=== PATIENT | male | born 1950 | race Caucasian/White ===

== ENCOUNTER → 2016-11-26 | Outpatient (CLI) | payer MEDICARE, OTHER ==
[2016-11-26 08:34] LABS: HEMOGLOBIN 16.1 g/dL (14.1-18.0); LYMPH # 1.5 K/mm3 (0.7-4.5); LYMPH % 19.6 % (10-50)
[2016-11-26 09:33] LABS: BUN 16 mg/dL (7-18)
[2016-11-26 10:08] LABS: GFR (ESTIMATED) 67 ML/MIN (>60)
== END ==
LOC: LAB 08:13
PROVIDERS: Internal Medicine Adolescent Medicine
DX: I25.10 Atherosclerotic heart disease of native coronary artery without angina pectoris (principal); E78.5 Hyperlipidemia, unspecified; I10 Essential (primary) hypertension

== ENCOUNTER → 2017-03-01 | Outpatient (CLI) | payer MEDICARE, OTHER ==
[2017-03-01 08:58] LABS: HEMOGLOBIN 14.9 g/dL (14.1-18.0); LYMPH # 1.4 K/mm3 (0.7-4.5)
[2017-03-01 11:11] LABS: BUN 15 mg/dL (7-18)
[2017-03-01 11:17] LABS: GFR (ESTIMATED) 67 ML/MIN (>60)
== END ==
LOC: LAB 08:31
PROVIDERS: Internal Medicine Adolescent Medicine
DX: I10 Essential (primary) hypertension (principal); E78.5 Hyperlipidemia, unspecified; I25.10 Atherosclerotic heart disease of native coronary artery without angina pectoris